=== PATIENT | female | born 1955 | race Caucasian/White ===

== ENCOUNTER 2016-07-12 10:35 | Inpatient (IN) | payer BC ==
[2016-07-12] MEDS ORDERED: SODIUM CHLORIDE 0.9% 1000ML 1,000 ML IV ONE (11:15)
[2016-07-12 11:47] LABS: BASOPHILS % (AUTO) 1 % (0-3); EOSINOPHILS % (AUTO) 0 % (0-9); HEMATOCRIT 37 % (35-47); MEAN CORPUSCULAR HGB CONC 34.2 gm/dl (32.0-36.0); NEUTROPHILS % (AUTO) 84.7 % (37-80)
[2016-07-12 12:01] LABS: MEAN CORPUSCULAR VOLUME 102 fL (81-99)
[2016-07-12 12:05] LABS: ANISOCYTOSIS SLIGHT AMT; TARGET CELLS PRESENT
[2016-07-12] MEDS: SODIUM CHLORIDE 0.9% FLUSH 10 ML SOL IV PRN (12:10)
[2016-07-12 12:12] LABS: ALBUMIN 2.2 gm/dl (3.4-5.0); CALCIUM 8.2 mg/dl (8.5-10.1); POTASSIUM 3.5 mMol/L (3.5-5.1)
[2016-07-12] MEDS ORDERED: ZOLPIDEM TARTRATE 5 MG TAB PO PRN (12:56)
[2016-07-12] MEDS ORDERED: Non-Formulary Medication MISC (Fluticasone Propionate 1 SPR) NAS PRN (12:56)
[2016-07-12] MEDS ORDERED: PROCHLORPERAZINE MALEATE 5 MG TAB PO PRN (12:56)
[2016-07-12] MEDS ORDERED: SODIUM CHLORIDE 0.9% 1000ML 1,000 ML IV SCH (13:00)
[2016-07-12] MEDS: ENOXAPARIN 60 MG SOL SC SCH (13:31)
[2016-07-12] MEDS ORDERED: FLUTICASONE PROPIONATE SPR NAS PRN (14:10)
[2016-07-12] MEDS: ONDANSETRON HCL 4 MG TAB PO PRN (17:49)
[2016-07-12] MEDS: OLANZAPINE 2.5 MG TAB PO SCH (19:59)
[2016-07-12] MEDS: AMOXIL/CLAVULANATE 400/5 ML PDR PO SCH (20:00)
[2016-07-12] MEDS: SODIUM CHLORIDE 0.9% 1000ML 1,000 ML IV SCH (21:13)
[2016-07-13] MEDS: ENOXAPARIN 60 MG SOL SC SCH ×2 (00:51→15:11)
[2016-07-13] MEDS: LEVOTHYROXINE SODIUM 88 MCG TAB PO SCH (06:31)
[2016-07-13] MEDS: SODIUM CHLORIDE 0.9% 1000ML 1,000 ML IV SCH ×2 (06:43→18:41)
[2016-07-13 08:34] LABS: BASOPHILS % (AUTO) 1 % (0-3); EOSINOPHILS % (AUTO) 0 % (0-9); HEMATOCRIT 30 % (35-47); MEAN CORPUSCULAR HGB CONC 34.3 gm/dl (32.0-36.0); MONOCYTES % (AUTO) 11.4 % (0-12); NEUTROPHILS % (AUTO) 78.4 % (37-80)
[2016-07-13 08:35] LABS: CALCIUM 7.5 mg/dl (8.5-10.1); POTASSIUM 3.5 mMol/L (3.5-5.1)
[2016-07-13 08:44] LABS: MEAN CORPUSCULAR VOLUME 102 fL (81-99)
[2016-07-13 08:51] LABS: TARGET CELLS PRESENT
[2016-07-13] MEDS ORDERED: LOSARTAN POTASSIUM 25 MG PO SCH (09:00)
[2016-07-13] MEDS ORDERED: CYCLOPHOSPHAMIDE 50 MG PO SCH (09:00)
[2016-07-13] MEDS: AMOXIL/CLAVULANATE 400/5 ML PDR PO SCH (09:24)
[2016-07-13] MEDS: LORAZEPAM 0.5 MG TAB PO PRN ×2 (12:11→18:43)
[2016-07-13] MEDS: ONDANSETRON HCL 4 MG TAB PO PRN (12:14)
[2016-07-13] MEDS: CYCLOPHOSPHAMIDE 50 MG PO SCH (12:58)
[2016-07-13] MEDS ORDERED: ALUMINUM/MAGNESIUM 30 ML SUS PO PRN (14:19)
[2016-07-13] MEDS ORDERED: SIMETHICONE 40 MG/0.6 ML SUS PO SCH (17:00)
[2016-07-13] MEDS: OLANZAPINE 2.5 MG TAB PO SCH (18:24)
[2016-07-14] MEDS: ENOXAPARIN 60 MG SOL SC SCH ×2 (01:02→12:48)
[2016-07-14] MEDS: LORAZEPAM 0.5 MG TAB PO PRN ×2 (01:03→20:35)
[2016-07-14] MEDS: SODIUM CHLORIDE 0.9% 1000ML 1,000 ML IV SCH ×3 (04:53→17:46)
[2016-07-14] MEDS: LEVOTHYROXINE SODIUM 88 MCG TAB PO SCH (06:34)
[2016-07-14 07:33] LABS: BASOPHILS % (AUTO) 1 % (0-3); EOSINOPHILS % (AUTO) 0 % (0-9); HEMATOCRIT 32 % (35-47); MEAN CORPUSCULAR HGB CONC 34.9 gm/dl (32.0-36.0); MONOCYTES % (AUTO) 10.1 % (0-12)
[2016-07-14 07:36] LABS: MEAN CORPUSCULAR VOLUME 102 fL (81-99)
[2016-07-14 07:46] LABS: ALBUMIN 1.8 gm/dl (3.4-5.0); ALT 128 IU/L (14-63); SODIUM 133 mMol/L (136-145)
[2016-07-14 08:07] LABS: ANISOCYTOSIS SLIGHT AMT
[2016-07-14 08:08] LABS: OVALOCYTES PRESENT; TARGET CELLS PRESENT
[2016-07-14 08:12] LABS: GLOM FILT RATE 46 mL/min (>60)
[2016-07-14] MEDS: CYCLOPHOSPHAMIDE 50 MG PO SCH (12:39)
[2016-07-15] MEDS: LORAZEPAM 0.5 MG TAB PO PRN ×4 (01:03→16:50)
[2016-07-15] MEDS: ONDANSETRON HCL 4 MG TAB PO PRN (02:26)
[2016-07-15] MEDS: LEVOTHYROXINE SODIUM 88 MCG TAB PO SCH (06:29)
[2016-07-15 08:17] LABS: HEMATOCRIT 30 % (35-47); MEAN CORPUSCULAR HGB CONC 36.3 gm/dl (32.0-36.0)
[2016-07-15 08:29] LABS: MEAN CORPUSCULAR VOLUME 104 fL (81-99)
[2016-07-15 08:32] LABS: CALCIUM 6.9 mg/dl (8.5-10.1); GLOM FILT RATE 20 mL/min (>60); POTASSIUM 4.5 mMol/L (3.5-5.1); SODIUM 132 mMol/L (136-145)
[2016-07-15 08:41] LABS: ANISOCYTOSIS SLIGHT AMT; BASOPHILS % (MANUAL) 0 % (0-3); EOSINOPHILS % (MANUAL) 1 % (0-9); LYMPHOCYTES % (MANUAL) 8 % (10-50); TARGET CELLS PRESENT
[2016-07-15 09:06] LABS: ALT 100 IU/L (14-63)
[2016-07-15] MEDS: CYCLOPHOSPHAMIDE 50 MG PO SCH (11:20)
[2016-07-15] MEDS ORDERED: ENOXAPARIN 40 MG SOL SC SCH (13:00)
[2016-07-15 16:01] VITALS: BP 90/61; PULSE 114; TEMP 98.8
[2016-07-15] MEDS ORDERED: LORAZEPAM 0.5 MG TAB PO PRN (19:12)
[2016-07-15] MEDS ORDERED: LORAZEPAM 2 MG/ML SOL ONE (19:18)
[2016-07-15] MEDS ORDERED: MORPHINE SULFATE 10 MG/ML SOL ONE ×2 (19:19→21:00)
[2016-07-15] MEDS: LORAZEPAM 2 MG/ML SOL IV PRN (19:25)
[2016-07-15] MEDS: MORPHINE SULFATE 10 MG/ML SOL IV PRN ×2 (19:26→21:04)
[2016-07-15] MEDS: SODIUM CHLORIDE 0.9% FLUSH 10 ML SOL IV PRN (21:05)
[2016-07-16] MEDS ORDERED: MORPHINE SULFATE 10 MG/ML SOL ONE ×4 (06:02→14:37)
[2016-07-16] MEDS: MORPHINE SULFATE 10 MG/ML SOL IV PRN ×4 (06:05→14:41)
[2016-07-16] MEDS: LEVOTHYROXINE SODIUM 88 MCG TAB PO SCH (06:13)
[2016-07-16] MEDS: LORAZEPAM 2 MG/ML SOL IV PRN ×2 (07:00→09:49)
[2016-07-16] MEDS ORDERED: ONDANSETRON HCL 4 MG/2 ML SOL IV PRN (08:40)
[2016-07-16] MEDS: SODIUM CHLORIDE 0.9% FLUSH 10 ML SOL IV PRN (09:49)
[2016-07-16 10:40] VITALS: RESP 24
[2016-07-16 11:44] VITALS: O2SAT 95
== END 2016-07-16 17:55 | disposition expired | DRG 382 ==
LOC: ACUTE CARE 10:35
PROVIDERS: ADMIT Family Medicine; ATTEND Family Medicine
DX: C50.919 Malignant neoplasm of unspecified site of unspecified female breast (principal); N17.9 Acute kidney failure, unspecified; C78.7 Secondary malignant neoplasm of liver and intrahepatic bile duct; I95.9 Hypotension, unspecified; E86.0 Dehydration; J32.9 Chronic sinusitis, unspecified; E03.9 Hypothyroidism, unspecified; R06.02 Shortness of breath; I10 Essential (primary) hypertension
CPT/HCPCS: 36415; 71010; 71275; 74020; 80048; 80053; 82550; 84484; 85007; 85025; 85027; 85378; 93005; 94760; J1650; J2060; J2270; Q0164; Q9967